=== PATIENT | female | born 1970 | race Caucasian/White ===

== ENCOUNTER 2017-02-28 20:41 | Emergency (ER) | payer BC, OTHER ==
[2017-02-28 21:05] LABS: Basophils # (A) 0.1 k/uL (0-0.2); Basophils % (A) 1 %; CH 29.3; CHCM 33.7; Eosinophils # (A) 0.4 k/uL (0-0.7); Eosinophils % (A) 5 %; HCT 39.9 % (34.0-46.0); HDW 2.36; HGB 13.3 gm/dL (11.4-16.0); Luc # (Auto) 0.37; Luc % (Auto) 4; Lymphocytes # (A) 3.6 k/uL (1.0-4.8); Lymphocytes % (A) 41 %; MCH 29.1 pg (25.0-35.0); MCHC 33.3 g/dL (31.0-37.0); MCV 87.2 fL (80.0-100.0); Monocytes # (A) 0.5 k/uL (0-1.0); Monocytes % (A) 5 %; Neutrophils # (A) 3.9 k/uL (1.3-7.7); Neutrophils % (A) 44 %; RBC 4.57 m/uL (3.80-5.40); RDW 13.2 % (11.5-15.5); WBC 8.8 k/uL (3.8-10.6); WBC (Perox) 8.63
--- NOTE | 2017-02-28 21:10 | XR ---
EXAMINATION TYPE: XR chest 2V DATE OF EXAM: 02/28/2017 COMPARISON: 05/21/2014 HISTORY: Chest pain TECHNIQUE: Frontal and lateral views of the chest are obtained. FINDINGS: Heart and mediastinum are normal. Lungs are clear. Diaphragm is normal. There are chest le ads. IMPRESSION: Normal chest. No change.
[2017-02-28] MEDS ORDERED: NITROGLYCERIN SL TABS 0.4 MG TAB SUBLINGUAL STA (21:13)
--- NOTE | 2017-02-28 21:15 | ED ---
Chest Pain HPI - General Chief Complaint: Chest Pain Stated Complaint: chest pain Time Seen by Provider: 02/28/17 21:00 Source: patient, RN notes reviewed Mode of arrival: wheelchair Limitations: no limitations - History of Present Illness Initial Comments: This is a 46-year-old male with a history of esophageal spasms a started having spasms and pain in the midchest well 40 minutes ago. Lasting longer than usual. Sharp severe nature no shortness breath no fevers chills sweats other symptoms usually she states goes away with time. MD Complaint: chest pain - Related Data Home Medications Medication Instructions Recorded Confirmed Hydrocodone/Acetaminophen [[place] 1 tab PO Q6HR PRN 05/21/14 02/28/17 5-325] Atenolol [Tenormin] 25 mg PO DAILY 03/20/15 02/28/17 Sertraline [Zoloft] 100 mg PO DAILY 03/20/15 02/28/17 Atorvastatin [Lipitor] 20 mg PO DAILY 02/28/17 02/28/17 Gabapentin [Neurontin] 300 mg PO TID 02/28/17 02/28/17 Omeprazole 20 mg PO DAILY 02/28/17 02/28/17 Allergies Allergy/AdvReac Type Severity Reaction Status Date / Time Sulfa (Sulfonamide Allergy Rash/Hives Verified 02/28/17 21:06 Antibiotics) sulfamethoxazole Allergy Rash/Hives Verified 02/28/17 21:06 [From Bactrim] trimethoprim [From Bactrim] Allergy Rash/Hives Verified 02/28/17 21:06 Review of Systems ROS Statement: Those systems with pertinent positive or pertinent negative responses have been documented in the HPI. ROS Other: All systems not noted in ROS Statement are negative. EKG Findings - EKG Results: EKG: interpreted by BASSEM, sinus rhythm (Sinus rhythm rate 74. Interval 98 QRS 92 QT since QTC of 420 01/26/1966 st-t wave changes this. EKG dated 05/21/14 shows no acute change.) Past Medical History Past Medical History: Hyperlipidemia Additional Past Medical History / Comment(s): SPINAL ARTHRITIS History of Any Multi-Drug Resistant Organisms: None Reported Past Surgical History: Orthopedic Surgery Additional Past Surgical History / Comment(s): RT AND LT KNEE SURGERY, left frozen shoulder release. Past Psychological History: No Psychological Hx Reported Smoking Status: Never smoker General Exam - General Exam Comments Initial Comments: Is a well-developed well-nourished awake alert anxious appearing female she is in distress Limitations: no limitations General appearance: alert, anxious, in distress Head exam: Present: atraumatic, normocephalic, normal inspection Eye exam: Present: normal appearance, PERRL, EOMI. Absent: scleral icterus, conjunctival injection, periorbital swelling ENT exam: Present: normal exam, mucous membranes moist Neck exam: Present: normal inspection. Absent: tenderness, meningismus, lymphadenopathy Respiratory exam: Present: normal lung sounds bilaterally. Absent: respiratory distress, wheezes, rales, rhonchi, stridor Cardiovascular Exam: Present: regular rate, normal rhythm, normal heart sounds. Absent: systolic murmur, diastolic murmur, rubs, gallop, clicks GI/Abdominal exam: Present: soft, normal bowel sounds. Absent: distended, tenderness, guarding, rebound, rigid Extremities exam: Present: normal inspection, full ROM, normal capillary refill. Absent: tenderness, pedal edema, joint swelling, calf tenderness Back exam: Present: normal inspection Neurological exam: Present: alert, oriented X3, CN II-XII intact Psychiatric exam: Present: anxious Skin exam: Present: warm, dry, intact, normal color. Absent: rash Course Vital Signs 02/28/17 02/28/17 02/28/17 20:49 21:17 21:20 Temperature 97.6 F Pulse Rate 80 67 Respiratory 28 H Rate Blood Pressure 169/94 120/71 107/64 O2 Sat by Pulse 97 Oximetry 02/28/17 02/28/17 21:26 21:52 Temperature Pulse Rate 66 57 L Respiratory 20 Rate Blood Pressure 107/62 104/60 O2 Sat by Pulse 96 96 Oximetry - Reevaluation(s) Reevaluation #1: 02/28/17 22:19 Patient's pain did improve from 05/04-10/02 this is prior to the GI cocktail. Chest Pain MDM - MDM Imaging was reviewed no acute findings. Patient is pain-free at this time. The presentation is consistent with a recurrent esophageal spasm. Patient is encouraged to follow-up with her doctor and necessary see GI referral. She is return when necessary Disposition Clinical Impression: Atypical chest pain, Esophageal spasm Disposition: HOME SELF-CARE Condition: Good Instructions: Esophageal Spasm (ED) Referrals: Lorenzo Smith MD [Primary Care Provider] - 1-2 days
[2017-02-28 21:18] LABS: ALT 39 U/L (9-52); AST 32 U/L (14-36); Alkaline Phosphatase 68 U/L (38-126); Anion Gap 15 mmol/L; Blood Urea Nitrogen 15 mg/dL (7-17); Calcium 9.4 mg/dL (8.4-10.2); Carbon Dioxide 21 mmol/L (22-30); Chloride 104 mmol/L (98-107); Glucose 128 mg/dL (74-99); Magnesium 1.9 mg/dL (1.6-2.3); Non-African American GFR(MDRD) 60 (>60 ml/min/1.73 sqM); Potassium 4.2 mmol/L (3.5-5.1); Sodium 140 mmol/L (137-145); Total Bilirubin 0.3 mg/dL (0.2-1.3); Total Protein 7.4 g/dL (6.3-8.2)
[2017-02-28 21:20] LABS: INR 1.2 (<1.2); Partial Thromboplastin Time 25.3 sec (22.0-30.0); Prothrombin Time 11.7 sec (9.0-12.0)
[2017-02-28 21:26] LABS: Creatine Kinase 150 U/L (30-135)
[2017-02-28] MEDS ORDERED: MAG HYDROX/AL HYDROX/SIMETH 30 ML, HYOSCYAMINE ELIXIR 10 ML, CIMETIDINE HCL 300 MG, LID... PO STA ×4 (21:28)
[2017-02-28 21:39] LABS: Creatine Kinase MB 0.7 ng/mL (0.0-2.4); Troponin I <0.012 ng/mL (0.000-0.034)
[2017-02-28 21:53] VITALS: RESP 20
[2017-02-28 22:48] VITALS: BP 95/51; PULSE 49; TEMP 98.1
== END 2017-02-28 22:59 | disposition home or self-care (01) ==
LOC: EC 20:41
DX: K22.4 Dyskinesia of esophagus (principal); R07.89 Other chest pain; E78.5 Hyperlipidemia, unspecified; Z79.899 Other long term (current) drug therapy; Z88.2 Allergy status to sulfonamides
CPT/HCPCS: 36415; 71020; 80053; 82550; 82553; 83735; 84484; 85025; 85379; 85610; 85730; 93005; 99285

== ENCOUNTER → 2019-08-16 | Outpatient (CLI) | payer BC ==
--- NOTE | 2019-08-17 13:37 | MM ---
Reason for exam: screening (asymptomatic). Last mammogram was performed 1 year and 2 months ago. History: Patient is postmenopausal. Took hormonal contraceptives for 5 years beginning at age 39. Physical Findings: A clinical breast exam by your physician is recommended on an annual basis and results should be correlated with mammographic findings. MG 3D Screening Mammo W/Cad Bilateral CC and MLO view(s) were taken. Prior study comparison: June 23, 2018, bilateral MG 3d screening mammo w/cad. March 13, 2016, bilateral MG screening mammo w CAD. There are scattered fibroglandular densities. Stable benign calcifications. There is no discrete abnormality. No significant changes when compared with prior studies. ASSESSMENT: Benign, BI-RAD 2 RECOMMENDATION: Routine screening mammogram of both breasts in 1 year.
== END | disposition home or self-care (01) ==
LOC: RADMAMWWP 15:18
PROVIDERS: ATTEND Obstetrics & Gynecology
DX: Z12.31 Encounter for screening mammogram for malignant neoplasm of breast (principal)
CPT/HCPCS: 77063; 77067

== ENCOUNTER → 2021-08-07 | Outpatient (CLI) | payer BC ==
--- NOTE | 2021-08-11 11:35 | MM ---
Reason for exam: screening (asymptomatic). Last mammogram was performed 2 years ago. History: Patient is postmenopausal. Took hormonal contraceptives for 5 years beginning at age 39. Physical Findings: A clinical breast exam by your physician is recommended on an annual basis and results should be correlated with mammographic findings. MG 3D Screening Mammo W/Cad Bilateral CC and MLO view(s) were taken. Prior study comparison: August 16, 2019, bilateral MG 3d screening mammo w/cad. June 23, 2018, bilateral MG 3d screening mammo w/cad. The breast tissue is heterogeneously dense. This may lower the sensitivity of mammography. No significant changes when compared with prior studies. ASSESSMENT: Negative, BI-RAD 1 RECOMMENDATION: Routine screening mammogram of both breasts in 1 year.
== END | disposition home or self-care (01) ==
LOC: RADMAMWWP 07:01
PROVIDERS: ATTEND Obstetrics & Gynecology
DX: Z12.31 Encounter for screening mammogram for malignant neoplasm of breast (principal)
CPT/HCPCS: 77063; 77067

== ENCOUNTER → 2023-09-09 | Outpatient (CLI) | payer BC ==
--- NOTE | 2023-09-09 22:18 | MM ---
Reason for Exam: Screening (asymptomatic). Last screening mammogram was performed 12 month(s) ago. Patient History: Menarche at age 15. First Full-Term at age 23. Postmenopausal. Patient has history of breast feeding. Hormonal Contraceptives, starting at age 39 for 5 years. Sister had breast cancer, age 47. Risk Values: Leeanne 5 year model risk: 1.8%. NCI Lifetime model risk: 14.6%. Prior Study Comparison: 03/13/2016 Bilateral Screening Mammogram, [facility]. 06/23/2018 Bilateral Screening Mammogram, [facility]. 08/16/2019 Bilateral Screening Mammogram, [facility]. 08/07/2021 Bilateral Screening Mammogram, [facility]. 09/07/2022 Bilateral MG 3D screening mammo w/cad, [facility]. Tissue Density: The breast tissue is heterogeneously dense. This may lower the sensitivity of mammography. Findings: Analyzed By CAD. There is no suspicious group of microcalcifications or new suspicious mass in either breast. Overall Assessment: Negative, BI-RAD 1 Management: Screening Mammogram of both breasts in 1 year. . Patient should continue monthly self-breast exams. A clinical breast exam by your physician is recommended on an annual basis. This exam should not preclude additional follow-up of suspicious palpable abnormalities. Note on Leeanne scores and lifetime risk: 1. A Leeanne score greater than 3% is considered moderate risk. If this is the case, consider specialist referral to assess eligibility for a risk reducing agent. 2. If overall lifetime risk for the development of breast cancer is 20% or higher, the patient may qualify for future screening with alternating mammogram and breast MRI. Electronically signed and approved by: Dionicio Roland M.D. Radiologist
== END | disposition home or self-care (01) ==
LOC: RADMAMWWP 07:05
PROVIDERS: ATTEND Obstetrics & Gynecology
DX: Z12.31 Encounter for screening mammogram for malignant neoplasm of breast (principal); Z78.0 Asymptomatic menopausal state; Z80.3 Family history of malignant neoplasm of breast
CPT/HCPCS: 77063; 77067

== ENCOUNTER 2024-10-04 09:00 | Day surgery (SDC) | payer BC ==
[~2024-10-04 09:00] MED LIST: LACTATED RINGERS 1,000 ML IV SCH
[2024-10-04 09:43] VITALS: TEMP 97.3
[2024-10-04] MEDS: IV FLUID CONTINUATION 1,000 ML IV ONE ×3 (09:50→10:47)
[2024-10-04] MEDS ORDERED: PROPOFOL 10 MG/ML 20 ML VIAL IV ONE (09:56)
[2024-10-04] MEDS ORDERED: LIDOCAINE 1% INJ 10MG/ML (20 ML MDV) ONE (09:56)
--- NOTE | 2024-10-04 10:19 | P.PCN ---
Date of Procedure: 10/04/24 Procedure(s) Performed: BRIEF HISTORY: Patient is a 54-year-old pleasant white female scheduled for an elective colonoscopy as a part of screening for colon cancer. PROCEDURE PERFORMED: Colonoscopy. PREOPERATIVE DIAGNOSIS: Screening for colon cancer. IV sedation per Anesthesia. PROCEDURE: After informed consent was obtained, the patient, was brought into the endoscopy unit. IV sedation was administered by Anesthesia under continuous monitoring. Digital rectal examination was normal. Initially the Olympus CF-160 flexible video colonoscope was then inserted in the rectum, gradually advanced into the cecum without any difficulty. Careful examination was performed as the scope was gradually being withdrawn. Ileocecal valve and the appendiceal orifice were visualized and appeared normal. Prep was excellent. Mucosa of the cecum, ascending colon, transverse colon, descending colon, sigmoid colon, and rectum appeared normal. Scattered diffuse diverticulosis. Retroflexion was performed in the rectum and no lesions were seen. The patient tolerated the procedure well. IMPRESSION: Normal-appearing colon from rectum to cecum with no evidence of colorectal neoplasia. Scattered diffuse diverticulosis. RECOMMENDATIONS: Findings of this examination were discussed with the patient as well as her family. She was advised to have repeat screening colonoscopy in 10 years..
[2024-10-04 10:44] VITALS: RESP 16
[2024-10-04 11:15] VITALS: BP 97/62; PULSE 57
== END 2024-10-04 11:19 | disposition home or self-care (01) ==
LOC: ORWHC2ENDO 09:00
PROVIDERS: ATTEND Internal Medicine Gastroenterology
DX: Z12.11 Encounter for screening for malignant neoplasm of colon (principal); K57.30 Diverticulosis of large intestine without perforation or abscess without bleeding; E78.5 Hyperlipidemia, unspecified; M54.50 Low back pain, unspecified; Z88.2 Allergy status to sulfonamides; Z79.02 Long term (current) use of antithrombotics/antiplatelets; Z79.899 Other long term (current) drug therapy
CPT/HCPCS: 45378; J2003; J2704